=== PATIENT | male | born 1980 | race Caucasian/White ===

== ENCOUNTER 2017-11-25 08:21 | Day surgery (SDC) | payer OTHER, SELFPAY ==
[2017-11-12 16:15] VITALS: BMI 33.0
[2017-11-25 08:40] VITALS: BP 112/76; PULSE 56; RESP 16; TEMP 36.4; O2SAT 95; BMI 34.3
[2017-11-25] MEDS: LACTATED RINGERS 1,000 ML 42 ML IV (08:50)
--- NOTE | 2017-11-25 09:39 | PM.PREOP ---
Pre-operative Note Interval Note Pre-op Check: Yes History & Physical Reviewed by Physician and Yes Exam Performed Changes: No H&P completed within 30 days and has changed as indicated here:: Patient seen and examined today. History physical examination on the chart as documented November 03/2018 has not changed. Patient marked in preoperative area for surgery. Proceed with left inguinal hernia repair today as planned.
[2017-11-25] MEDS: CEFAZOLIN 2 GM/100 ML FROZ.PIGGY IV (09:40)
--- NOTE | 2017-11-25 10:02 | SUR.OPER ---
Supine on padded OR bed, head on pillow, arms secured on padded arm boards at <90 degrees abduction, legs uncrossed, safety belt at thigh, tape over blanket over lower legs.
[2017-11-25] MEDS: LIDOCAINE 1% W/EPI INJ 20 ML INJ (10:11)
[2017-11-25] MEDS: BUPIVACAINE 0.5% (PF) VIAL 30 ML INJ (10:12)
[2017-11-25] MEDS: SODIUM CHLORIDE IRRIG SOLUTION 250 ML, CEFAZOLIN VIAL 1 GM IRR (10:14)
[2017-11-25 11:08] VITALS: BP 137/84; PULSE 87; RESP 16; TEMP 36.6; O2SAT 95
--- NOTE | 2017-11-25 11:17 | PM.OP.1 ---
Operative Date/Time/Diagnoses Date of procedure: 11/25/17 Time of procedure: 11:18 Pre-op diagnosis: Symptomatic left inguinal hernia Post-op diagnosis: same Procedure & Clinicians Procedure: Open left inguinal hernia repair with mesh Same procedure as scheduled: Yes Indications: 37-year-old male who presented with symptomatic intermittent left inguinal mass. Examination and evaluation were consistent with left inguinal hernia. Open repair with mesh was recommended. Surgeon: Oc Celaya Click Yes if Unassisted: Yes Anesthesia Type: General Operative Notes Findings: 1. Direct hernia left inguinal canal 2. Small indirect left inguinal hernia with lipoma of the cord 3. Sacrifice of the left ilioinguinal nerve in order to adequately liberate and reduced direct hernia sac 4. Testicles in normal descended bilateral position following the conclusion of the case Closure Type: primary Specimen(s): none sent Implants & Drains: Medium-size Pro Loop polypropylene mesh plug and onlay patch left inguinal canal Estimated Blood Loss (mL): 5 Blood products transfused: none Procedure in detail: After obtaining informed consent the patient was brought to the operating room placed supine on the table. After satisfactory induction of anesthesia the abdomen and genitalia were prepped and draped in usual sterile fashion. A SCOAP time-out was performed per standard protocol. Transverse skin incision was designed over the lower aspect of the left inguinal canal for a distance of approximately 4 cm and infiltrated with a 1: 1 mixture 1% lidocaine with 1 100,000 epinephrine and 0.5% plain Marcaine for postoperative analgesia. Skin incision was created with 10 scalpel blade followed by the Bovie for hemostasis. Two individual epigastric superficial veins were encountered and separately divided between hemostats and secured with 2 0 Vicryl ties. A Weitlaner retractor was used to provide exposure. Bovie was used to achieve hemostasis and carried the dissection down to the external oblique fascia. Fascia was divided in direction of its fibers through the level of the external inguinal ring. Edges of the fascia were secured with hemostats and elevated into the operative field. Blunt dissection allowed for exposure of the iliopubic tract, conjoined tendon, and rectus fascia. Spermatic cord was encircled bluntly with the surgeon's fingers followed by a [place] drain. Meticulous blunt dissection using DeBakey forceps was employed to skeletonize the spermatic cord. The direct hernia sac was somewhat adherent to the cord and the ilioinguinal nerve. The nerve was sacrificed between hemostats and secured with 2 0 Vicryl tie in order to allow for adequate reduction of the hernia sac. Further dissection of spermatic cord revealed a small indirect hernia with lipoma of the cord which was liberated and reduced. The lipoma was excised and discarded. Mesh was brought onto the operative field and soaked in Ancef solution. Plug was placed through the hernia defect and secured with interrupted 2 0 Vicryl suture to surrounding fascia and cremasteric muscle fibers. Onlay patch was then secured with interrupted 0 Tycron sutures circumferentially. Laterally the mesh was secured to the iliopubic tract well medially it was secured to the rectus fascia. Anteriorly the mesh was secured to the conjoined tendon. Tails of the mesh were brought around the spermatic cord placed deep to the external oblique fascia then secured with a single 0 Tycron suture. The defect in the mesh around the spermatic cord was large enough to easily admit the tip of the Hedy clamp thereby avoiding strangulation of the cord. Wound was irrigated with copious amount sterile saline solution and hemostasis verified. Cord was replaced into its usual anatomic position and the external oblique fascia was closed over the cord using running 3 0 Vicryl suture. Subcutaneous tissue was reapproximated with interrupted 3 0 Vicryl suture. Skin was closed in a running subcuticular fashion with 4 0 Monocryl suture. Dermal adhesive was applied to the skin. Again, testicles were noted to be in normal descended position at the conclusion of the case. Anesthesia was reversed the patient extubated in the operating room. He was taken recovery in stable condition. Complications: none Condition: stable Disposition: PACU Plan for aftercare: 1. Discharge to home 2. Follow up in surgery Clinic in 2 weeks
[2017-11-25 11:23] VITALS: BP 125/85; PULSE 85; RESP 16; TEMP 36.4; O2SAT 95
[2017-11-25 11:52] VITALS: BP 111/78; PULSE 72; RESP 16; TEMP 36.5; O2SAT 92
--- NOTE | 2017-11-25 12:22 | SUR.PHASEII ---
late entry: assumed care from br[facility] de [facility]. sent to get perscriptions filled, pt's incision c/d/i. pt and reviewed d/c instructions all voiced an understanding, pt dressed when ready and left when ready. pt voided in br prior to leaving.
== END 2017-11-25 12:15 | disposition home or self-care (01) ==
PROVIDERS: Visit Provider Surgery
PROC: (CPT 49505; principal; 2017-11-25 10:00)
DX: K40.90 Unilateral inguinal hernia, without obstruction or gangrene, not specified as recurrent (principal); D17.6 Benign lipomatous neoplasm of spermatic cord
CPT/HCPCS: 49505; C1781; J0690; J1100; J2250; J2405; J2704; J3010